=== PATIENT | male | born 1965 | race Caucasian/White ===

== ENCOUNTER 2018-03-04 02:39 | Inpatient (IN) | payer OTHER ==
[~2018-03-04] VITALS: Ht 182.9 cm; Wt 96.4 kg
[2018-03-04 03:10] LABS: BASOPHIL (%) 0.3 % (0-1); EOSINOPHIL (%) 0 % (0-5); HEMATOCRIT 46.9 % (38.0-50.0); HEMOGLOBIN 17.1 G/DL (12.5-16.6); IMMATURE GRANULOCYTE (%) 0.5 % (0.0-0.7); LYMPHOCYTE (%) 8.9 % (15-42); LYMPHOCYTE COUNT 1.4 K/uL (1.0-2.8); MCH 31.1 PG (29.0-34.0); MCHC 36.5 G/DL (30.0-36.0); MCV 85.3 FL (86-99); MONOCYTE COUNT 2.1 K/uL (0-0.8); NEUTROPHIL (%) 76.3 % (45-76); NEUTROPHIL COUNT 11.6 K/uL (1.8-6.4); PLATELET COUNT 334 K/uL (156-360); RBC DIS.WIDTH-CV 11.6 % (11.8-14.6); RBC DIS.WIDTH-SD 35.8 % (39-53); WHITE BLOOD COUNT 15.2 K/uL (4.1-10.2)
[2018-03-04 03:17] LABS: ALBUMIN 4.2 g/dL (3.2-4.8)
[2018-03-04 03:18] LABS: CHLORIDE 95 mEq/L (99-109); POTASSIUM 4.3 mEq/L (3.7-5.4); SODIUM 129 mEq/L (136-147)
[2018-03-04 03:20] LABS: GLUCOSE 199 mg/dL (70-99); TOTAL PROTEIN 8.1 g/dL (6.4-8.3)
[2018-03-04 03:22] LABS: TOTAL BILIRUBIN 7.1 mg/dL (0.0-1.0)
[2018-03-04 03:23] LABS: ALKALINE PHOSPHATASE 210 IU/L (3-129)
[2018-03-04 03:24] LABS: CREATININE 0.9 mg/dL (0.6-1.3)
[2018-03-04 03:25] LABS: AST (GOT) 104 IU/L (2-34); DIRECT BILIRUBIN 5.6 mg/dL (0.0-0.3); UREA NITROGEN (BUN) 11 mg/dL (9-23)
[2018-03-04 03:27] LABS: ALT (GPT) 191 IU/L (3-49); GFR ESTIMATE (CALCULATED) > 59 mL/min/ (58.99-99999); LIPASE 12 U/L (1.0-51.0)
[2018-03-04 05:59] LABS: APPEARANCE CLEAR ((CLEAR)); BILIRUBIN NEGATIVE; BLOOD NEGATIVE; COLOR AMBER ((YELLOW)); GLUCOSE (STRIP) NEGATIVE; KETONES NEGATIVE; LEUKOCYTES NEGATIVE; NITRITE NEGATIVE; PROTEIN (STRIP) NEGATIVE; SPECIFIC GRAVITY 1.026 (1.000-1.030)
[2018-03-04] MEDS ORDERED: CIPRO500 MG PO (08:25)
[2018-03-04] MEDS ORDERED: FISH OIL 1,0001 EAC7 PO (08:26)
[2018-03-04] MEDS ORDERED: PROZAC40 MG PO (08:27)
[2018-03-04] MEDS ORDERED: PROZAC10 MG PO (08:27)
[2018-03-04] MEDS ORDERED: NORVASC5 MG PO (08:28)
[2018-03-04] MEDS ORDERED: MOTRIN600 MG PO (08:29)
[2018-03-04] MEDS ORDERED: FLOMAX0.4 MG PO (08:29)
[2018-03-04] MEDS ORDERED: METFORMIN HCL500 MG PO (08:30)
[2018-03-04 09:54] VITALS: BP 110/69
[2018-03-04 15:32] VITALS: BP 126/80
[2018-03-04 19:59] VITALS: BP 123/77
[2018-03-04 23:52] VITALS: BP 129/78
[2018-03-05 03:34] VITALS: BP 132/80
[2018-03-05 06:11] LABS: HEMATOCRIT 44.2 % (38.0-50.0); MCH 29.7 PG (29.0-34.0); MCHC 33.5 G/DL (30.0-36.0); MCV 88.8 FL (86-99); RBC DIS.WIDTH-SD 39.3 % (39-53); RED BLOOD COUNT 4.98 M/uL (4.00-5.50); WHITE BLOOD COUNT 11.2 K/uL (4.1-10.2)
[2018-03-05 06:16] LABS: HEMOGLOBIN 14.8 G/DL (12.5-16.6)
[2018-03-05 06:22] LABS: ALBUMIN 2.8 G/DL (3.2-4.8); ALKALINE PHOSPHATASE 113 IU/L (3-129); ALT (GPT) 74 IU/L (3-49); AST (GOT) 22 IU/L (2-34); CHLORIDE 102 MEQ/L (99-109); GFR ESTIMATE (CALCULATED) > 59 mL/min/ (58.99-99999); GLUCOSE 152 mg/dL (70-99); POTASSIUM 4.2 MEQ/L (3.7-5.4); SODIUM 135 MEQ/L (136-147); TOTAL BILIRUBIN 2.5 MG/DL (0.0-1.0); TOTAL PROTEIN 5.4 G/DL (6.4-8.3); UREA NITROGEN (BUN) 12 mg/dL (9-23)
[2018-03-05 07:49] LABS: PLAT.SUFFICIENCY ADEQUATE
[2018-03-05 07:50] VITALS: BP 118/70
[2018-03-05 07:51] LABS: PLATELET COUNT 233 K/uL (156-360)
[2018-03-05 12:05] VITALS: BP 128/67
[2018-03-05 16:11] VITALS: BP 136/79
[2018-03-05 19:11] VITALS: BP 141/82
[2018-03-05 23:53] VITALS: BP 125/69
[2018-03-06 03:43] VITALS: BP 121/70
[2018-03-06 05:54] LABS: HEMATOCRIT 36.3 % (38.0-50.0); MCH 30.3 PG (29.0-34.0); MCHC 34.4 G/DL (30.0-36.0); MCV 88.1 FL (86-99); PLATELET COUNT 187 K/uL (156-360); RBC DIS.WIDTH-CV 12.2 % (11.8-14.6); RBC DIS.WIDTH-SD 39.7 % (39-53); RED BLOOD COUNT 4.12 M/uL (4.00-5.50); WHITE BLOOD COUNT 11.1 K/uL (4.1-10.2)
[2018-03-06 05:55] LABS: HEMOGLOBIN 12.5 G/DL (12.5-16.6)
[2018-03-06 06:13] LABS: AMYLASE 12 IU/L (1-118); CREATININE 0.9 MG/DL (0.6-1.3); GFR ESTIMATE (CALCULATED) > 59 mL/min/ (58.99-99999); UREA NITROGEN (BUN) 14 mg/dL (9-23)
[2018-03-06 06:20] LABS: ALBUMIN 2.4 G/DL (3.2-4.8); ALKALINE PHOSPHATASE 115 IU/L (3-129); ALT (GPT) 41 IU/L (3-49); AST (GOT) 17 IU/L (2-34); CHLORIDE 107 MEQ/L (99-109); CREATININE 0.9 MG/DL (0.6-1.3); GFR ESTIMATE (CALCULATED) > 59 mL/min/ (58.99-99999); GLUCOSE 133 mg/dL (70-99); POTASSIUM 3.8 MEQ/L (3.7-5.4); SODIUM 140 MEQ/L (136-147); TOTAL PROTEIN 4.7 G/DL (6.4-8.3); UREA NITROGEN (BUN) 14 mg/dL (9-23)
[2018-03-06 06:22] LABS: TOTAL BILIRUBIN 1.6 MG/DL (0.0-1.0)
[2018-03-06 07:40] VITALS: BP 126/68
[2018-03-06 11:24] VITALS: BP 121/72
[2018-03-06 16:30] VITALS: BP 151/94
[2018-03-06 19:32] VITALS: BP 127/95
[2018-03-06 23:30] VITALS: BP 163/84
[2018-03-07 03:50] VITALS: BP 180/95
[2018-03-07 06:20] LABS: HEMATOCRIT 35.8 % (38.0-50.0); HEMOGLOBIN 12.4 G/DL (12.5-16.6); MCH 30.5 PG (29.0-34.0); MCHC 34.6 G/DL (30.0-36.0); PLATELET COUNT 187 K/uL (156-360); RBC DIS.WIDTH-CV 12.5 % (11.8-14.6); RBC DIS.WIDTH-SD 40.4 % (39-53); RED BLOOD COUNT 4.07 M/uL (4.00-5.50); WHITE BLOOD COUNT 12.4 K/uL (4.1-10.2)
[2018-03-07 06:47] LABS: ALBUMIN 2.1 G/DL (3.2-4.8); ALKALINE PHOSPHATASE 95 IU/L (3-129); ALT (GPT) 58 IU/L (3-49); CHLORIDE 106 MEQ/L (99-109); CREATININE 0.7 MG/DL (0.6-1.3); GFR ESTIMATE (CALCULATED) > 59 mL/min/ (58.99-99999); GLUCOSE 106 mg/dL (70-99); POTASSIUM 3.5 MEQ/L (3.7-5.4); SODIUM 141 MEQ/L (136-147); TOTAL PROTEIN 4.6 G/DL (6.4-8.3); UREA NITROGEN (BUN) 12 mg/dL (9-23)
[2018-03-07 06:49] LABS: AST (GOT) 72 IU/L (2-34); TOTAL BILIRUBIN 1.1 MG/DL (0.0-1.0)
[2018-03-07 08:48] VITALS: BP 156/38
[2018-03-07] MEDS ORDERED: Tylenol Extra Streng PO (11:10)
== END 2018-03-07 14:48 | DRG 408 ==
LOC: EME 02:39 → 5SOUTH 07:43 → EDOF 07:43 → ENRESERV 07:44 → 5SOUTH 09:39
PROVIDERS: Hospitalist; Physician Assistant; Surgery
DX: K80.67 Calculus of gallbladder and bile duct with acute and chronic cholecystitis with obstruction (principal); A41.9 Sepsis, unspecified organism; E87.1 Hypo-osmolality and hyponatremia; F33.9 Major depressive disorder, recurrent, unspecified; E11.9 Type 2 diabetes mellitus without complications; E78.5 Hyperlipidemia, unspecified; E86.0 Dehydration; E86.1 Hypovolemia; F41.8 Other specified anxiety disorders; I10 Essential (primary) hypertension; K59.00 Constipation, unspecified; N40.0 Benign prostatic hyperplasia without lower urinary tract symptoms; K40.90 Unilateral inguinal hernia, without obstruction or gangrene, not specified as recurrent; R09.02 Hypoxemia; K82.8 Other specified diseases of gallbladder; I95.9 Hypotension, unspecified; M54.5 Low back pain; M48.061 Spinal stenosis, lumbar region without neurogenic claudication; E66.9 Obesity, unspecified; Z79.84 Long term (current) use of oral hypoglycemic drugs; Z87.891 Personal history of nicotine dependence; Z68.28 Body mass index [BMI] 28.0-28.9, adult
CPT/HCPCS: 71045; 74177; 74328; 76705; 80048; 80053; 80076; 81003; 82150; 82565; 82948; 83036; 83605; 83690; 84520; 85025; 85027; 87040; 87081; 88304; 94799; 99281; 99285; C1757; C1769; J0330; J1170; J1644; J1815; J1885; J2405; J2543; J2710; J3010; J3480; J7030; J7042; J7050; J7643

== ENCOUNTER 2018-03-17 15:57 | Inpatient (IN) | payer OTHER ==
[~2018-03-17] VITALS: Ht 182.9 cm; Wt 89.5 kg
[~2018-03-17 15:57] MED LIST: CIPRO500 MG PO; FISH OIL 1,0001 EAC7 PO; FLOMAX0.4 MG PO; METFORMIN HCL500 MG PO; MOTRIN600 MG PO; NORVASC5 MG PO; PROZAC10 MG PO; PROZAC40 MG PO; Tylenol Extra Streng PO
[2018-03-17 17:19] LABS: HEMATOCRIT 39.4 % (38.0-50.0); HEMOGLOBIN 13.9 G/DL (12.5-16.6); MCH 29.8 PG (29.0-34.0); MCHC 35.3 G/DL (30.0-36.0); MCV 84.5 FL (86-99); RBC DIS.WIDTH-SD 36.5 % (39-53); RED BLOOD COUNT 4.66 M/uL (4.00-5.50); WHITE BLOOD COUNT 26.1 K/uL (4.1-10.2)
[2018-03-17 17:22] LABS: PLATELET COUNT 526 K/uL (156-360)
[2018-03-17 17:28] LABS: ALBUMIN 3.4 g/dL (3.2-4.8)
[2018-03-17 17:29] LABS: CHLORIDE 98 mEq/L (99-109); POTASSIUM 4.4 mEq/L (3.7-5.4); SODIUM 133 mEq/L (136-147)
[2018-03-17 17:31] LABS: GLUCOSE 165 mg/dL (70-99); TOTAL PROTEIN 7.3 g/dL (6.4-8.3)
[2018-03-17 17:33] LABS: TOTAL BILIRUBIN 1.1 mg/dL (0.0-1.0)
[2018-03-17 17:34] LABS: ALKALINE PHOSPHATASE 124 IU/L (3-129)
[2018-03-17 17:35] LABS: CREATININE 0.8 mg/dL (0.6-1.3); GFR ESTIMATE (CALCULATED) > 59 mL/min/ (58.99-99999)
[2018-03-17 17:36] LABS: AST (GOT) 21 IU/L (2-34); UREA NITROGEN (BUN) 9 mg/dL (9-23)
[2018-03-17 17:38] LABS: ALT (GPT) 22 IU/L (3-49); LIPASE 41 U/L (1.0-51.0)
[2018-03-17 17:40] LABS: TROP-I INTERPRETATION NEGATIVE; TROPONIN-I < 0.01 ng/mL (0.0-0.30)
[2018-03-17] MEDS ORDERED: TYLENOL EXTRA500 MG PO (19:43)
[2018-03-17] MEDS ORDERED: NUBAIN (19:45)
[2018-03-17 20:36] LABS: INTER. NORMALIZED RATIO 1.3
[2018-03-17 20:39] LABS: PTT 33.1 SEC (25-37)
[2018-03-17 21:30] VITALS: BP 120/76
[2018-03-17 22:09] LABS: APPEARANCE CLEAR ((CLEAR)); BILIRUBIN NEGATIVE; BLOOD NEGATIVE; COLOR YELLOW ((YELLOW)); GLUCOSE (STRIP) NEGATIVE; KETONES 20; LEUKOCYTES NEGATIVE; NITRITE NEGATIVE; PROTEIN (STRIP) NEGATIVE; SPECIFIC GRAVITY 1.018 (1.000-1.030); UCUL ADDED? NO
[2018-03-17 23:18] VITALS: BP 116/72; BP 143/75
[2018-03-18 03:19] VITALS: BP 129/67; BP 131/77
[2018-03-18 07:15] VITALS: BP 125/80
[2018-03-18 10:28] VITALS: BP 146/84
[2018-03-18 15:25] VITALS: BP 134/77
[2018-03-18 19:17] VITALS: BP 117/72
[2018-03-18 23:32] VITALS: BP 116/66
[2018-03-19 06:37] LABS: HEMATOCRIT 33.3 % (38.0-50.0); MCH 29.1 PG (29.0-34.0); MCHC 33.3 G/DL (30.0-36.0); MCV 87.2 FL (86-99); PLATELET COUNT 373 K/uL (156-360); RBC DIS.WIDTH-CV 12.1 % (11.8-14.6); RBC DIS.WIDTH-SD 38.7 % (39-53); RED BLOOD COUNT 3.82 M/uL (4.00-5.50); WHITE BLOOD COUNT 9.8 K/uL (4.1-10.2)
[2018-03-19 06:38] LABS: HEMOGLOBIN 11.1 G/DL (12.5-16.6)
[2018-03-19 06:56] LABS: ALBUMIN 2.5 G/DL (3.2-4.8); ALKALINE PHOSPHATASE 78 IU/L (3-129); ALT (GPT) 29 IU/L (3-49); AST (GOT) 43 IU/L (2-34); CHLORIDE 100 MEQ/L (99-109); CREATININE 0.6 MG/DL (0.6-1.3); GFR ESTIMATE (CALCULATED) > 59 mL/min/ (58.99-99999); GLUCOSE 151 mg/dL (70-99); POTASSIUM 4.1 MEQ/L (3.7-5.4); SODIUM 135 MEQ/L (136-147); TOTAL BILIRUBIN 0.8 MG/DL (0.0-1.0); TOTAL PROTEIN 5.7 G/DL (6.4-8.3); UREA NITROGEN (BUN) 9 mg/dL (9-23)
[2018-03-19 07:10] VITALS: BP 114/70
[2018-03-19 11:00] VITALS: BP 100/64
[2018-03-19 15:20] VITALS: BP 120/81
[2018-03-19 23:24] VITALS: BP 134/79
[2018-03-20 03:32] VITALS: BP 127/79
[2018-03-20 06:27] LABS: HEMATOCRIT 35.7 % (38.0-50.0); HEMOGLOBIN 11.8 G/DL (12.5-16.6); MCH 28.6 PG (29.0-34.0); MCHC 33.1 G/DL (30.0-36.0); MCV 86.4 FL (86-99); PLATELET COUNT 411 K/uL (156-360); RBC DIS.WIDTH-CV 12.2 % (11.8-14.6); RED BLOOD COUNT 4.13 M/uL (4.00-5.50); WHITE BLOOD COUNT 7.1 K/uL (4.1-10.2)
[2018-03-20 06:57] LABS: ALBUMIN 2.7 G/DL (3.2-4.8); ALKALINE PHOSPHATASE 93 IU/L (3-129); ALT (GPT) 30 IU/L (3-49); AST (GOT) 28 IU/L (2-34); CHLORIDE 100 MEQ/L (99-109); CREATININE 0.8 MG/DL (0.6-1.3); GFR ESTIMATE (CALCULATED) > 59 mL/min/ (58.99-99999); GLUCOSE 138 mg/dL (70-99); POTASSIUM 4.7 MEQ/L (3.7-5.4); SODIUM 138 MEQ/L (136-147); TOTAL PROTEIN 5.8 G/DL (6.4-8.3); UREA NITROGEN (BUN) 11 mg/dL (9-23)
[2018-03-20 06:58] LABS: TOTAL BILIRUBIN 0.6 MG/DL (0.0-1.0)
[2018-03-20 07:00] VITALS: BP 125/82
[2018-03-20 12:27] VITALS: BP 125/75
[2018-03-20 15:15] VITALS: BP 129/79
[2018-03-20 20:21] VITALS: BP 129/83
[2018-03-21 00:31] VITALS: BP 125/75
[2018-03-21 04:33] VITALS: BP 125/75
[2018-03-21 06:49] LABS: BASOPHIL (%) 0.8 % (0-1); BASOPHIL COUNT 0.1 K/uL (0-0.1); EOSINOPHIL (%) 0.7 % (0-5); HEMATOCRIT 36.9 % (38.0-50.0); HEMOGLOBIN 12.2 G/DL (12.5-16.6); IMMATURE GRANULOCYTE (%) 0.5 % (0.0-0.7); LYMPHOCYTE (%) 27.8 % (15-42); LYMPHOCYTE COUNT 1.7 K/uL (1.0-2.8); MCH 28.2 PG (29.0-34.0); MCHC 33.1 G/DL (30.0-36.0); MCV 85.4 FL (86-99); MONOCYTE (%) 11.3 % (3-12); MONOCYTE COUNT 0.7 K/uL (0-0.8); NEUTROPHIL (%) 58.9 % (45-76); NEUTROPHIL COUNT 3.5 K/uL (1.8-6.4); PLATELET COUNT 408 K/uL (156-360); RBC DIS.WIDTH-CV 11.9 % (11.8-14.6); RBC DIS.WIDTH-SD 37.6 % (39-53); RED BLOOD COUNT 4.32 M/uL (4.00-5.50)
[2018-03-21 07:18] VITALS: BP 125/71
[2018-03-21 07:21] LABS: CHLORIDE 99 MEQ/L (99-109); CREATININE 0.7 MG/DL (0.6-1.3); GFR ESTIMATE (CALCULATED) > 59 mL/min/ (58.99-99999); GLUCOSE 156 mg/dL (70-99); POTASSIUM 4.9 MEQ/L (3.7-5.4); SODIUM 138 MEQ/L (136-147); UREA NITROGEN (BUN) 12 mg/dL (9-23)
[2018-03-21 16:12] VITALS: BP 117/76
[2018-03-21 23:21] VITALS: BP 136/84
[2018-03-22 06:55] VITALS: BP 133/76
[2018-03-22 17:51] VITALS: BP 137/79
[2018-03-23 00:27] VITALS: BP 127/77
[2018-03-23 07:00] VITALS: BP 117/72
[2018-03-23 15:00] VITALS: BP 112/71
[2018-03-24 00:24] VITALS: BP 118/76
[2018-03-24 07:16] VITALS: BP 120/74
[2018-03-24 16:16] VITALS: BP 128/72
[2018-03-25 00:32] VITALS: BP 120/78
[2018-03-25 06:58] VITALS: BP 111/74
[2018-03-25 15:16] VITALS: BP 107/68
[2018-03-25 23:23] VITALS: BP 120/79
[2018-03-26 06:46] VITALS: BP 94/56
[2018-03-26 15:13] VITALS: BP 140/87
[2018-03-26 22:59] VITALS: BP 133/80
[2018-03-27 07:26] VITALS: BP 109/67
[2018-03-27 16:35] VITALS: BP 114/73
[2018-03-28 00:17] VITALS: BP 120/78
[2018-03-28 08:03] VITALS: BP 123/81
[2018-03-28] MEDS ORDERED: AUGMENTIN875 MG PO (08:32)
[2018-03-28] MEDS ORDERED: TYLENOL EXTRA500 MG PO (08:34)
[2018-03-28] MEDS ORDERED: MOTRIN600 MG PO (08:34)
[2018-03-28 11:11] VITALS: BP 127/77
== END 2018-03-28 14:40 | DRG 862 ==
LOC: EME 15:57 → EDOF 19:18 → 5EAST 19:18 → ENRESERV 19:24 → 5EAST 20:47
PROVIDERS: Emergency Medicine Emergency Medical Services; Physician Assistant; Physician Assistant Surgical; Surgery
PROC: 0W9G30Z Drainage of Peritoneal Cavity with Drainage Device, Percutaneous Approach (ICD-10-PCS; principal; 2018-03-18)
DX: T81.4XXA Infection following a procedure, initial encounter (principal); K65.1 Peritoneal abscess; E11.9 Type 2 diabetes mellitus without complications; F32.9 Major depressive disorder, single episode, unspecified; N40.0 Benign prostatic hyperplasia without lower urinary tract symptoms; D72.829 Elevated white blood cell count, unspecified; Z90.49 Acquired absence of other specified parts of digestive tract; Z98.890 Other specified postprocedural states; B96.7 Clostridium perfringens [C. perfringens] as the cause of diseases classified elsewhere; Z79.4 Long term (current) use of insulin
CPT/HCPCS: 10030; 71045; 74019; 74150; 74176; 78226; 80048; 80053; 81003; 82948; 83690; 84484; 85025; 85027; 85610; 85730; 87040; 87070; 87075; 87076; 87205; 93005; 94799; 99281; 99285; A9537; C1729; C1769; J0295; J1170; J1644; J1650; J1815; J1956; J2405; J2543; J3010; J7040; J7050; S0028; S0030